=== PATIENT | female | born 1955 | race Caucasian/White ===

== ENCOUNTER 2020-05-27 08:10 | Outpatient (CLI) | payer MEDICARE ==
--- NOTE | 2020-05-27 08:47 | ULT ---
ULTRASOUND RETROPERITONEUM LIMITED: (ABDOMINAL AORTA) DATE: 05/27/2020 HISTORY: Abdominal aortic aneurysm screening for 64-year-old female FINDINGS: The caliber of the abdominal aorta is as follows (in cm): Proximal: 2.7 x 2.4. Mid: 1.7 x 1.7. Distal: 1.6 x 1.4. IMPRESSION: Ectasia, but no aneurysm, of abdominal aorta.
--- NOTE | 2020-05-27 11:21 | BD ---
DEXA BONE DENSITY STUDY: Date: 05/27/2020 HISTORY: Postmenopausal. FINDINGS: Lumbar Spine: BMD (g/cm2) L1 0.819 T-Score: -1.6 L2 0.924 T-Score: -0.9 L3 1.055 T-Score: -0.3 L4 0.975 T-Score: -0.8 Total 0.945 T-Score: -0.9 Left Femoral Neck: 0.723 T-Score: -1.1 Total Femur: 0.949 T-Score: +0.1 IMPRESSION: 1. Normal bone mineral density of the lumbar spine. 2. Osteopenia of the left femoral neck. 3. The 10 year fracture risk for a major osteoporotic fracture is 16% and for a hip fracture is 0.8% . These fracture probabilities are calculated for an untreated patient. POS: [facility]
--- NOTE | 2020-06-06 10:28 | MMO ---
Bilateral MAMMO Bilat Screen [facility]. CLINICAL HISTORY: Patient is 64 years old and is seen for screening. The patient has no family history of breast cancer. The patient has no personal history of cancer. VIEWS: The views performed were: bilateral craniocaudal with tomosynthesis; bilateral mediolateral oblique with tomosynthesis; and right exaggerated craniocaudal. FILMS COMPARED: The present examination has been compared to prior imaging studies performed at [facility] on 06/09/2009, 12/05/2012, 02/18/2015 and 11/12/2016. This study has been interpreted with the assistance of computer-aided detection. MAMMOGRAM FINDINGS: There are scattered fibroglandular densities. There are no suspicious masses, suspicious calcifications, or new areas of architectural distortion. IMPRESSION: THERE IS NO MAMMOGRAPHIC EVIDENCE OF MALIGNANCY. A ROUTINE FOLLOW-UP MAMMOGRAM IN 1 YEAR IS RECOMMENDED. THE RESULTS OF THIS EXAM WERE SENT TO THE PATIENT. ACR BI-RADS Category 1 - Negative MAMMOGRAPHY NOTE: 1. A negative mammogram report should not delay a biopsy if a dominant of clinically suspicious mass is present. 2. Approximately 10% to 15% of breast cancers are not detected by mammography. 3. Adenosis and dense breasts may obscure an underlying neoplasm. Reported by: JACKY LEE MD Electonically Signed: [id number]
== END 2020-05-27 08:11 | disposition home or self-care (01) ==
LOC: BICULT 08:10
PROVIDERS: ATTEND Family Medicine
DX: Z12.31 Encounter for screening mammogram for malignant neoplasm of breast (principal); Z13.820 Encounter for screening for osteoporosis; Z13.6 Encounter for screening for cardiovascular disorders; M85.852 Other specified disorders of bone density and structure, left thigh; I77.811 Abdominal aortic ectasia; Z78.0 Asymptomatic menopausal state
CPT/HCPCS: 76775; 77063; 77067; 77080

== ENCOUNTER 2020-06-15 13:43 | Outpatient (CLI) | payer MEDICARE ==
--- NOTE | 2020-06-15 14:33 | CT ---
CT chest noncontrast low-dose screening HISTORY: Tobacco abuse. Former smoker. FINDINGS: No focal parenchymal lung mass or nodule evident. Lungs are slightly hyperinflated with sca ttered small bullae. Mild peripheral intralobular interstitial thickening, not extending all the way to the pleural surface. No pleural fluid or pneumothorax. Lack of contrast limits evaluation of the soft tissues. No mediastinal adenopathy apparent. There are postoperative changes of the lower cervical spine. Low-density lesions within the liver are incompletely evaluated without contrast and correlated with cysts on CT abdomen 03/28/2020. IMPRESSION : Lung RADS category 2. Benign findings. Suggest routine screening.
== END 2020-06-15 13:44 | disposition home or self-care (01) ==
LOC: BICCT 13:43
PROVIDERS: ATTEND Family Medicine
DX: Z12.2 Encounter for screening for malignant neoplasm of respiratory organs (principal); Z87.891 Personal history of nicotine dependence
CPT/HCPCS: G0297